=== PATIENT | female | born 1975 | race African-American/Black ===

== ENCOUNTER 2018-02-19 01:52 | Emergency (ER) | payer OTHER ==
[~2018-02-19] VITALS: Ht 170.2 cm; Wt 110.2 kg
[~2018-02-19 01:52] MED LIST: DIFLUCAN150 MG PO; DOXYCYCLINE 10100 M1 PO; FLAGYL500 MG PO; NOHOMEMEDICATIONS; NORCO 5-325 TA1 EACH PO
[2018-02-19 02:53] LABS: ABSOLUTE NEUTROPHILS 11.2 thou/uL (1.4-8.2); BASOPHILS 0.8 % (0.0-2.0); EOSINOPHILS 0.6 % (0.0-3.0); HEMATOCRIT 38.9 % (37.0-47.0); HEMOGLOBIN 12.9 gm/dL (12.0-15.0); MCHC 33.2 g/dL (28.0-37.0); MCV 78.4 fL (80.0-100.0); MONOCYTES 8.8 % (1.0-8.0); PLATELET COUNT 306 thou/uL (150-400); POLYS 74.8 % (36.0-66.0); RBC 4.97 mil/uL (4.20-5.00); RDW 14.1 % (10.5-14.5); WBC 14.9 thou/uL (4.0-11.0)
[2018-02-19 02:55] LABS: ANION GAP 9 mmol/L (7-16); BUN 9 mg/dL (7-18); CALCIUM 8.8 mg/dL (8.5-10.1); CHLORIDE 100 mmol/L (98-107); CO2 25 mmol/L (21-32); GLUCOSE 125 mg/dL (74-106); POTASSIUM 3.2 mmol/L (3.5-5.1); SODIUM 134 mmol/L (136-145)
[2018-02-19 02:56] LABS: URINE BILIRUBIN NEGATIVE (Negative); URINE BLOOD NEGATIVE (Negative); URINE CLARITY CLEAR; URINE COLOR YELLOW; URINE GLUCOSE-RANDOM* NEGATIVE (Negative); URINE KETONES NEGATIVE (Negative); URINE LEUKOCYTES-REFLEX NEGATIVE (Negative); URINE NITRITE-REFLEX NEGATIVE (Negative); URINE PROTEIN (DIPSTICK) NEGATIVE (Negative); URINE UROBILINOGEN 0.2 E.U./dl (0.2-1.0)
[2018-02-19 03:00] LABS: ALBUMIN 3.3 g/dL (3.4-5.0); DIRECT BILIRUBIN < 0.1 mg/dL (<0.1-0.3); LIPASE 79 U/L (73-393); SGOT 24 U/L (15-37); SGPT 32 U/L (30-65); TOTAL BILIRUBIN 0.5 mg/dL (<0.1-1.0)
[2018-02-19] MEDS ORDERED: MOBIC15 MG PO (05:52)
[2018-02-19 06:04] VITALS: BP 112/64
[2018-02-22 15:09] LABS: NEISSERIA GONORRHEA-PCR Negative (Negative)
== END 2018-02-19 06:04 | disposition home or self-care (01) ==
LOC: ER 01:52
PROVIDERS: Emergency Medicine
DX: R10.84 Generalized abdominal pain (principal); N89.8 Other specified noninflammatory disorders of vagina; I10 Essential (primary) hypertension

== ENCOUNTER 2019-09-26 18:16 | Emergency (ER) | payer OTHER ==
[~2019-09-26] VITALS: Ht 170.2 cm; Wt 101.2 kg
[~2019-09-26 18:16] MED LIST changes: +MOBIC15 MG PO
[2019-09-26 18:44] LABS: ABSOLUTE NEUTROPHILS 7.6 thou/uL (1.4-8.2); BASOPHILS 1.1 % (0.0-2.0); EOSINOPHILS 1.9 % (0.0-3.0); HEMATOCRIT 40.4 % (37.0-47.0); HEMOGLOBIN 13.7 gm/dL (12.0-15.0); LYMPHOCYTES 28.1 % (24.0-44.0); MCH 26.7 pg (26.0-34.0); MCHC 33.9 g/dL (28.0-37.0); MCV 78.7 fL (80.0-100.0); MONOCYTES 6.2 % (1.0-8.0); PLATELET COUNT 342 thou/uL (150-400); POLYS 62.7 % (36.0-66.0); RBC 5.13 mil/uL (4.20-5.00); RDW 13.6 % (10.5-14.5); WBC 12.1 thou/uL (4.0-11.0)
[2019-09-26 18:52] LABS: ANION GAP 10 mmol/L (7-16); BUN 13 mg/dL (7-18); CALCIUM 8.8 mg/dL (8.5-10.1); CHLORIDE 100 mmol/L (98-107); CO2 27 mmol/L (21-32); CREATININE 0.9 mg/dL (0.6-1.0); GLUCOSE 105 mg/dL (74-106); POTASSIUM 3.6 mmol/L (3.5-5.1); SODIUM 137 mmol/L (136-145)
[2019-09-26 19:01] LABS: ALBUMIN 3.4 g/dL (3.4-5.0); SGOT 20 U/L (15-37); SGPT 27 U/L (30-65); TOTAL BILIRUBIN 0.3 mg/dL (<0.1-1.0); TOTAL PROTEIN 8.1 g/dL (6.4-8.2); TROPONIN-I <0.06 ng/mL (<0.06)
[2019-09-26 20:07] LABS: URINE BILIRUBIN NEGATIVE (Negative); URINE BLOOD NEGATIVE (Negative); URINE CLARITY CLEAR; URINE COLOR YELLOW; URINE GLUCOSE-RANDOM* NEGATIVE (Negative); URINE KETONES NEGATIVE (Negative); URINE LEUKOCYTES-REFLEX NEGATIVE (Negative); URINE NITRITE-REFLEX NEGATIVE (Negative); URINE PROTEIN (DIPSTICK) NEGATIVE (Negative); URINE SPECIFIC GRAVITY <= 1.005 (1.005-1.035); URINE UROBILINOGEN 0.2 E.U./dl (0.2-1.0)
[2019-09-26] MEDS ORDERED: FLEXERIL PO (20:59)
[2019-09-26 21:16] VITALS: BP 141/87
--- NOTE | 2019-09-27 08:17 | EKG ---
[facility] [place] [address] ELECTROCARDIOGRAM REPORT Name: JOHANN DEJESUS Room #: DEP [facility]#: [id number] Admission: 09/26/19 Attend Phys: Discharge: 09/26/19 Date of : 77 Report #: [id number] THIS REPORT FOR: cc: Araceli Ordonez MD, Karla L. MD Lundgren,Ramsey Allen MD [facility] ~ THIS REPORT FOR: //name// [facility] ED Test Date: 2019-09-26 Test Time: 18:22:13 Pat Name: JOHANN DEJESUS Department: Room: Gender: Home Day Care Provider: BAN : 1975 Requested By: Catherine Marquez Order Number: [id number] MD: Ramsey Hutson Measurements Intervals [place] Rate: 85 P: 54 PA: 145 QRS: -2 QRSD: 85 T: 14 QT: 377 QTc: 449 Interpretive Statements Sinus rhythm Ventricular premature complex Compared to ECG 12/06/2007 16:33:41 Ventricular premature complex(es) now present Electronically Signed On 09-27-2019 8:15:55 CDT by Ramsey Hutson [email or web address] <ELECTRONICALLY SIGNED> By: Ramsey Hutson MD, [facility] 09/27/19 0815 182 21 Ramsey Hutson MD, [facility] /EPI
== END 2019-09-26 21:16 | disposition home or self-care (01) ==
LOC: ER 18:16
PROVIDERS: Student in an Organized Health Care Education/Training Program
DX: R07.89 Other chest pain (principal); R11.0 Nausea; R42 Dizziness and giddiness; R51 Headache; M54.9 Dorsalgia, unspecified; H53.8 Other visual disturbances; R06.02 Shortness of breath; I10 Essential (primary) hypertension; J45.909 Unspecified asthma, uncomplicated